=== PATIENT | male | born 1975 | race Caucasian/White ===

== ENCOUNTER 2016-09-21 11:40 | Emergency (ER) | payer OTHER ==
[2016-09-21] MEDS ORDERED: HYDROmorphone 1 mg/mL Inj ONE ×2 (11:43→11:45)
[2016-09-21] MEDS ORDERED: 0.9% Sodium Chloride 1,000 ML IV ONE (11:45)
[2016-09-21] MEDS ORDERED: HYDROmorphone 1 mg/mL Inj IVPUSH PRN (11:45)
[2016-09-21] MEDS ORDERED: Ondansetron 2 mg/mL 2 mL Inj IVPUSH PRN (11:45)
--- NOTE | 2016-09-21 11:48 | ED.REPORT ---
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 The pt fell off a 10-12 feet high roof onto dirt/construction debris and landed on his head and neck. As per the EMS, the pt lost consciousness, experienced vomiting, neck pain, pain in the left side of the abdomen, left shoulder and left leg. The pt reports most of his pain is in his left shoulder and neck. He denies any change in thinking, abdominal tenderness, pelvis tenderness and chest pain on palpation. Nursing Notes Stated Complaint: FALL Nursing Notes Reviewed: Yes General Time Seen by Provider: 11:38 Chief Complaint Multiple trauma Hx Obtained From: Patient, EMS Arrived By: Ambulance Onset Occurred: Just prior to arrival Symptom Duration: Since onset Progression Since Onset: Constant Caused by: Fall from (10-12 feet) Context: Occurred at: Workplace Location: : Neck: Shoulder left Quality: Painful Severity: Current: Severe Severity: Maximum: Severe Recent Healthcare: No recent doctor visit Similar Sx Previous: No Past Medical History Past Medical History Reports: Asthma Past Surgical History none reported Smoking History Unknown if Ever Smoker Ambulatory Status Independent Review of Systems GI: Reports: Vomiting Musculoskeletal: Reports: Extremity pain (Left leg), Joint pain (Left shoulder) , Neck pain, Denies: Back pain Neurologic: Reports: Change LOC Complete sys rev & neg: except as marked. Physical Exam Initial Vital Signs Temp: 36.2 Heart Rate: 88 BP: 160/121 Oxygen: 98% Resp: 20 Initial VS: Reviewed General/Constitutional: Awake, Alert Blood on left side of the face. Head / Eyes: Atraumatic, Normocephalic, PERRL, EOMI Neck: No swelling C-collar on. Respiratory / Chest: Breath sounds NL, Breath sounds = bilat, No respiratory distress Cardiovascular: Heart rate NL, Regular rhythm, Heart sounds NL, No gallop, No murmurs, No rubs Normal radial and ulnar pulse of left arm. Crepitus in left chest. Abdomen: Soft, Non-tender Back: Non-tender No vertebral tenderness but huge distracting injruy. Neurologic: Oriented X3, Speech NL, No motor deficits, No sensory deficits Upper Extremity / MS: Neurologic intact, Vascular intact Left Shoulder: Negative: Deformity present Severe left shoulder pain. Wrist / Hand: No deformity, Neurologic intact, Vascular intact Abrasion of distal ring finger, dorsal. Lower Extremity / Pelvis / MS: Full range of motion, No deformity, Neurologic intact, Vascular intact Ankle / Foot: Full range of motion, No deformity, Neurologic intact, Vascular intact Interpretation & Diagnostics PROCEDURE: CT CHEST, ABDOMEN AND PELVIS WITH CONTRAST ([id number]) IMPRESSION: 1. Highly comminuted left scapular fracture with extension into the glenoid and offset of the articular surface. There is also involvement of the acromion. 2. Nondisplaced left 3rd through 7th rib fractures. 3. No pulmonary contusion or laceration. No pneumothorax. 4. No solid organ contusion or lacerations. 5. No free fluid within the abdomen or pelvis. 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 -Bilateral pulmonary nodules. At least one of these has a groundglass appearance and a three-month followup CT of the chest is recommended. -Hepatic steatosis. Dictated by: Valentino Espinoza M.D. on 09/21/2016 at 11:12 Approved by: Valentino Espinoza M.D. on 09/21/2016 at 11:24 Lab Results Interpretation Result Diagram: 09/21/16 1210 Test 09/21/16 11:30 09/21/16 12:10 White Blood Count 8.1th/mm3 (3.8-10.1) Red Blood Count 3.94mil/mm3 (4.40-5.80) Mean Corpuscular Volume 91.4fL (81-100) Mean Corpuscular Hemoglobin 31.0pg (27.0-35.0) Mean Corpuscular Hemoglobin Concent 33.9% (32.0-37.0) Red Cell Distribution Width 13.6% (12.3-15.4) Platelet Count 260bil/L (150-400) Neutrophils (%) (Auto) 64.7% (40-74) Lymphocytes (%) (Auto) 25.2% (14-46) Monocytes (%) (Auto) 6.2% (4-12) Eosinophils (%) (Auto) 2.2% (0-5) Basophils (%) (Auto) 0.6% (0-3) Prothrombin Time 12.5sec (8.1-12.5) Prothromb Time International Ratio 1.16ratio Hemoglobin 14.1g/dL (13.8-17.2) Hematocrit 42.3% (41.0-50.0) ECG Interpretation ECG Interpretation: Normal Sinus rhythm. Rate 90. Time: 12:12 Interpreted by: ED physician CT Head Interpretation IMPRESSION: 1. No acute intracranial hemorrhage. 2. Prominent sinus disease appears chronic and probably related to dental disease. Dictated by: Valentino Espinoza M.D. on 09/21/2016 at 11:02 Approved by: Valentino Espinoza M.D. on 09/21/2016 at 11:06 Study: Head CT no contrast Interpretation / Wet Read by: Interpret - Radiologist CT C-Spine Interpretation IMPRESSION: 1. Vertical fractures of the C3, C4, and C5 vertebral bodies with involvement of the posterior elements is most pronounced at C3 and compatible with an unstable fracture. No significant retropulsion is evident. There does appear to be an epidural hematoma on the posterior margins of the these vertebral bodies. MRI would be helpful to evaluate the cervical cord. 2. Nondisplaced proximal right 1st rib fracture at the costovertebral junction. 3. Multifocal degenerative changes of the cervical spine are most pronounced at C5-6. Retrolisthesis at this level is felt to be degenerative. However, an acute process is difficult to exclude. There is central canal stenosis. 4. 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 Note: Findings were discussed with Dr. Barroso at 1240 hours (PST) on 09/21/16. Dictated by: Valentino Espinoza M.D. on 09/21/2016 at 11:24 Approved by: Valentino Espinoza M.D. on 09/21/2016 at 11:42 Study type: CT no contrast Interpretation / Wet Read by: Interpret - Radiologist Re-Eval/Medical Decision Re-Evaluation/Progress #1: Time of Eval: 12:05 Re-Evaluation/Progress Note: Rechecekd pt. Discussed the imaging results and informed the pt he will be transferred to [facility]. Re-Evaluation/Progress #2: Time of Eval: 12:41 Re-Evaluation/Progress Note: Rechecked pt. Discussed imaging results and diagnosis. Informed him that [facility] was contacted and he will be transferred. The pt understands and agrees with the plan. All questions answered. Consultation : Consulted With: Trauma surgeon Call Returned at: 12:38 [employer]: Will see patient, Agrees with plan, Accepts admit Note: Discussed the pt's condition with Dr. Owens at [facility]. She accepts admit. Counseled Regarding: Diagnosis, Lab results, Need for transfer Discharge & Departure Impression: Primary Impression: Left scapula fracture Encounter type: initial encounter Scapula location: unspecified part of scapula Fracture type: closed Qualified Code: S42.102A - Fracture of unspecified part of scapula, left shoulder, initial encounter for closed fracture Additional Impressions: Rib fractures Encounter type: initial encounter Rib fracture type: multiple ribs Fracture type: closed Laterality: unspecified laterality Qualified Code: S22.49XA - Multiple fractures of ribs, unspecified side, initial encounter for closed fracture Fx C3 vertebra-closed Encounter type: initial encounter Fx C4 vertebra-closed Encounter type: initial encounter Fx C5 vertebra-closed Encounter type: initial encounter Disposition: Transfer, Acute Care Facility Receiving Hospital: [facility] Transfer Accepted: Yes Transfer Accepted at: 12:38 Transfer Reason: Trauma Spoke with: Emergency physician Patient Status: Stable for transfer Patient Informed: Yes Discharge Condition All VS Reviewed: Yes Referrals: OTHER,PHYSICIAN (PCP) Crit Care Except Billable Proc Time Spent: 30-74 minutes Services Performed: Patient management by me, Time spent at bedside, Reviewing test results, Reviewing imaging, Discussing patient care Scribe Attestation Portions of this note were transcribed by Sherwin Sierra. I, , personally performed the history, physical exam and medical decision-making;I reviewed and confirmed the accuracy of the information in the transcribed note. Signed by Armen Estevez. 09/21/16 1250 Gelacio Barroso MD September 21, 2016 11:48 Sherwin Sierra September 21, 2016 11:53
[2016-09-21 12:00] LABS: BASOPHILS % (AUTO) 0.6 % (0-3); EOSINOPHILS % (AUTO) 2.2 % (0-5); MONOCYTES % (AUTO) 6.2 % (4-12); Mean Corpuscular Volume 91.4 fL (81-100); NEUTROPHILS % (AUTO) 64.7 % (40-74); Platelet Count 260 bil/L (150-400)
[2016-09-21 12:01] LABS: INR 1.16 ratio
--- NOTE | 2016-09-21 12:08 | DRSVH ---
PROCEDURE: CT BRAIN WITHOUT CONTRAST ([id number]) INDICATIONS: trauma TECHNIQUE: Noncontrast 4.5 mm thick angled axial sections acquired from the foramen magnum to the vertex, with c oronal reformats. COMPARISON: None. FINDINGS: Image quality: Diagnostic. Mild motion artifact is present. Brain: There is no acute intra-axial or extra-axial hemorrhage. No extra-axial fluid collection is i dentified. There is no midline shift or mass effect. The orbits are grossly unremarkable. No large areas of diffusely decreased attenuation are evident within the brain to suggest diffuse cer ebral edema. No focal parenchymal abnormality is identified. The ventricles and cortical sulci are age-appropriate. Bones: Calvarium and visualized facial bones are grossly intact. The right maxillary sinus is compl etely opacified. There is mucosal thickening of the adjacent right ethmoid air cells. It appears to be bony thickening of the beck of the right maxillary sinus, suggesting a chronic process. Corresp onding lucency surrounding the root of the 3rd tooth (upper right 1st molar). Additionally, there is prominent lucency surrounding the roots of the 13th and 14th teeth (upper left premolar and 1st mola r). Otherwise, the imaged paranasal sinuses and mastoid air cells are clear. IMPRESSION: 1. No acute intracranial hemorrhage. 2. Prominent sinus disease appears chronic and probably related to dental disease. Dictated by: Valentino Espinoza M.D. on 09/21/2016 at 11:02 Approved by: Valentino Espinoza M.D. on 09/21/2016 at 11:06
--- NOTE | 2016-09-21 12:25 | DRSVH ---
PROCEDURE: CT CHEST, ABDOMEN AND PELVIS WITH CONTRAST ([id number]) INDICATIONS: trauma TECHNIQUE: After the administration of intravenous contrast, 5 mm thick sections acquired from the lung apices t o the symphysis. 5 mm thick coronal and sagittal reformats were acquired. Additional 7 mm thick cor onal maximum intensity projection (MIP) reformats acquired through the lungs. Optional 10-minute del ayed imaging may be performed from the kidneys to the bladder. For radiation dose reduction, the fol lowing was used: automated exposure control, adjustment of mA and/or kV according to patient size. COMPARISON: None. FINDINGS: Image quality: Diagnostic. CHEST: Lungs: The lungs are well aerated without focal consolidation, effusion, or pneumothorax. No definit e pulmonary contusions are evident. There is no lung mass. However, there is a groundglass nodule e vident within the inferior aspect of the anterior right upper lobe that measures 11 x 6 mm (image 38, series 5). An additional separate nodule measuring approximately 4 mm in diameter is located slight ly inferior to this dominant nodule (image 42, series 5). Another nodule is seen along the superior margin of the left pulmonary fissure measuring approximately 5 mm in diameter (image 28, series 5). Mediastinum: No mediastinal hematomas. Heart size is normal. No pericardial effusion. Thoracic ao rta and pulmonary arteries demonstrate normal size and enhancement. No mediastinal or hilar adenopat hy. Esophagus is normal in caliber. No hiatal hernia. Chest wall and bones: Multiple nondisplaced fractures of the left-sided ribs are present (3rd, 4th, 5 th, 6th, and 7th ribs). Mild edema within the adjacent soft tissues is present. Fusion of the T2/T3 and T4/T5 vertebral bodies is present which appears to be congenital related to a segmentation anoma ly at the T4-5 level. Deformity of the right 1st rib is of doubtful significance and also probably c ongenital. There is a comminuted fracture present involving the left scapula that extends into the g lenoid, also involves the body of the scapula, and extends into the scapular spine. A fracture invol ving the acromion also is noted, which may be separate. The imaged portions of the right humerus are unremarkable. No subcutaneous emphysema. No axillary or supraclavicular adenopathy. Thyroid gland is not enlarged. ABDOMEN: Solid organs: Liver and spleen are normal in size and enhancement, without lacerations. The liver i s hypodense when compared to the spleen. Gallbladder is not enlarged. Biliary system is non-dilated . Pancreas enhances normally, without transection. No adrenal hematomas. Both kidneys enhance norm ally, without hydronephrosis or lacerations. Peritoneum and bowel: No free fluid or air. Unenhanced bowel loops demonstrate normal wall thicknes s and caliber. Nodes and vessels: No retroperitoneal or mesenteric adenopathy. Aorta and inferior vena cava are no rmal in size and enhancement. Bones: Age-appropriate degenerative changes of the lumbar spine are present. There are no acute comp ression fractures or other fractures of the lumbar spine. No suspicious osseous lesions are evident. PELVIS: Genitourinary: Bladder wall thickness is normal. The prostate is not enlarged. Miscellaneous: No inguinal hernias or adenopathy. No free fluid or loculated fluid collection is id entified. Bones: Pelvic ring and hip joints appear intact. No acute pelvic fractures are evident. No suspici ous osseous lesions are present. IMPRESSION: 1. Highly comminuted left scapular fracture with extension into the glenoid and offset of the articu lar surface. There is also involvement of the acromion. 2. Nondisplaced left 3rd through 7th rib fractures. 3. No pulmonary contusion or laceration. No pneumothorax. 4. No solid organ contusion or lacerations. 5. No free fluid within the abdomen or pelvis. 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 -Bilateral pulmonary nodules. At least one of these has a groundglass appearance and a three-month f ollowup CT of the chest is recommended. -Hepatic steatosis. Dictated by: Valentino Espinoza M.D. on 09/21/2016 at 11:12 Approved by: Valentino Espinoza M.D. on 09/21/2016 at 11:24
--- NOTE | 2016-09-21 12:44 | DRSVH ---
PROCEDURE: CT CERVICAL SPINE WITHOUT CONTRAST ([id number]) INDICATIONS: trauma TECHNIQUE: Noncontrast 3 mm thick sections acquired from the skull base to the T4 level. Sagittal and coronal r eformats were then constructed. For radiation dose reduction, the following was used: automated exp osure control, adjustment of mA and/or kV according to patient size. COMPARISON: None. FINDINGS: Image quality: Diagnostic. Motion artifact is present within the mid cervical region. Bones: The bone mineralization is within normal limits. No suspicious osseous lesions are evident. The odontoid is intact. Congenital fusion of the C4/5 and C5/6 vertebral bodies and posterior eleme nts are present. A vertically oriented fracture line extends through the mid aspect of the C3 vertebral body as well a s the fused C4/C5 vertebral bodies. Slight displacement/distraction of the vertical fracture line is evident at the C3 level by approximately 3 mm. However, no significant retropulsion is appreciated. Additional fractures are seen extending into the bilateral facet joints at the C3 level and involvi ng the bilateral lamina. The central canal at this level appears to be fairly well-maintained. No d efinite extension into the vertebral foramen is identified. Additional fracture involving the right C4 facet is present. An additional fracture is noted involving the costovertebral junction on the ri ght at the T1 rib. Additional congenital bony variants with fusion involving multiple vertebral leve ls involving the imaged upper thoracic region are noted. Moderate to severe multilevel degenerative changes of the cervical spine are most pronounced at the l evel of C5-C6 with prominent disc height loss, posterior disc osteophyte complex, and facet arthropat hy. Grade 1 retrolisthesis of C5 on C6 is present, which is probably chronic. There is central johnathon l stenosis at this location. Soft tissues: High attenuation fluid within the epidural space is noted extending from C1-C5, sugges ting epidural hematoma. The prevertebral soft tissues are thickened. No paravertebral hematomas. N o apical pneumothoraces. IMPRESSION: 1. Vertical fractures of the C3, C4, and C5 vertebral bodies with involvement of the posterior eleme nts is most pronounced at C3 and compatible with an unstable fracture. No significant retropulsion i s evident. There does appear to be an epidural hematoma on the posterior margins of the these verteb ral bodies. MRI would be helpful to evaluate the cervical cord. 2. Nondisplaced proximal right 1st rib fracture at the costovertebral junction. 3. Multifocal degenerative changes of the cervical spine are most pronounced at C5-6. Retrolisthesi s at this level is felt to be degenerative. However, an acute process is difficult to exclude. Ther e is central canal stenosis. 4. 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 Note: Findings were discussed with Dr. Barroso at 1240 hours (PST) on 09/21/16. Dictated by: Valentino Espinoza M.D. on 09/21/2016 at 11:24 Approved by: Valentino Espinoza M.D. on 09/21/2016 at 11:42
[2016-09-21 13:48] VITALS: BP 158/100; PULSE 89; RESP 14; O2SAT 100
== END 2016-09-21 13:11 | disposition short-term general hospital (02) ==
LOC: SED 11:40
DX: S42.192A Fracture of other part of scapula, left shoulder, initial encounter for closed fracture (principal); S22.42XA Multiple fractures of ribs, left side, initial encounter for closed fracture; S12.290A Other displaced fracture of third cervical vertebra, initial encounter for closed fracture; S12.390A Other displaced fracture of fourth cervical vertebra, initial encounter for closed fracture; S12.490A Other displaced fracture of fifth cervical vertebra, initial encounter for closed fracture; W13.2XXA Fall from, out of or through roof, initial encounter; Y93.89 Activity, other specified; Y99.0 Civilian activity done for income or pay; Y92.59 Other trade areas as the place of occurrence of the external cause; J45.909 Unspecified asthma, uncomplicated
CPT/HCPCS: 36415; 70450; 71260; 72125; 74177; 85014; 85018; 85025; 85610; 86850; 93005; 96374; 99291; G0390; Q9967

== ENCOUNTER 2016-09-28 23:47 | Observation (INO) | payer OTHER ==
[~2016-09-28] VITALS: Ht 177.8 cm; Wt 70.7 kg
[2016-09-28 23:49] VITALS: BP 110/69; PULSE 85; RESP 18; O2SAT 97
--- NOTE | 2016-09-29 00:26 | ED.REPORT ---
HPI-General Illness Date of Service September 29, 2016 ED Provider: Geoffrey Long MD The pt is a 41 y/o male w/ a history of trauma presenting to the ED complaining of delirium post surgery. He fell from a ladder from 40 ft, was sent to [facility] where he received C3-C5 surgery and was given Dilaudid. They chose not perform L scapula and rib surgery so he chose to go to [facility]. The delirium is present when the pt is taking the Percocet as well as when he is not taking it. The pt's family reports shallow breathing, thick bright green sputum, difficulty walking, L hand swelling and cold to touch , swelling and bruising at R hip, hot and cold sweats, nausea, slurred speech and vomiting.Denies fever. His brother left his contact information. Ajith Araiza (brother) [phone] Nursing Notes Stated Complaint: PAIN POST SURGERY Chief Complaint: Head, Face, Neck Trauma Nursing Notes Reviewed: Yes Allergies: Coded Allergies: No Known Allergies (Unverified , 09/28/16) General Time Seen by MD: 00:10 Chief Complaint Other (Increased delusion) Hx Obtained From: Patient, Spouse Arrived By: Walk-in Sudden in Onset?: Yes Onset Occurred: 1 week ago Symptom Duration: Since onset Recent Healthcare: Recent doctor visit, Recent hospitalization Similar Sx Previous: Yes Past Medical History Past Medical History Transferred to [facility] on September 21, 2016 after fall w/injury list: Fractures of the C3, C4, and C5 vertebral bodies with involvement of the posterior elements and a small epidural hematoma, multiple rib fractures (L ribs 3-8), left scapular fracture, clavicle fracture. Patient had a peripheral to carotid injury. Patient left AMA (he eloped without instructions) on 09/24/16, seen at [facility]. Consents obtained and reviewed from both [facility] and [place]. [facility] notes indicate the patient did have an aspiration event with a desaturation is 67% during his hospitalization. His hospitalization notes also indicate he did developed delirium at [facility], thought to be exacerbated by drug use with the tox screen positive for methamphetamines and can avoid. R wrist x-ray results: Minimally displaced fracture at the radial aspect of the second metacarpal extending to the second CMC joint. Non-displaced fracture at fourth proximal metacarpal shat at radial aspect. Possible fracture of trapezium at first CMC joint. Also increased sclerosis of distal capitate could be an impacted fracture. Reports: Asthma Past Surgical History Cervical surgery for C-spine fractures listed above (C3 corpectomy plus cage plus CO2 through for plating, C5 through 6 ACDF, C2 through T2 PSIF 09/22/16 Smoking History Current Every Day Smoker Social History Alcohol Use: 1-3 per day Drug Use: Denies drug use, Meth (tox screen positive [facility]), THC (tox screen positive at [facility]) Ambulatory Status Independent Review of Systems Shallow breathing, thick bright green sputum, difficulty walking, L hand swelling and cold to touch, swelling and bruising at R hip, hot and cold sweats Full Review of Systems Constitutional: Denies: Fever GI: Reports: Nausea, Vomiting Musculoskeletal: Reports: Extremity pain (L side ), Neck pain Neurologic: Reports: Confusion, Slurred speech Complete sys rev & neg: except as marked. Physical Exam Vital Signs Vital Signs Date Time Temp Pulse Resp B/P Pulse Ox O2 Delivery O2 Flow Rate FiO2 09/28/16 23:49 36.6 85 18 110/69 97 Initial VS: Reviewed, Vital signs normal General/Constitutional: Awake, Alert Head / Eyes: Normocephalic, PERRL Neck: Supple, No masses incision is clean, dry, and intact Respiratory / Chest: Breath sounds = bilat, No rales, No rhonchi, No wheezing Lungs are coarse Not currently SOB but was recently Cardiovascular: Heart rate NL, Regular rhythm, Heart sounds NL Heart Rate / Rhythm: Negative: Tachycardia Wrist / Hand: Neurologic intact, Vascular intact Swelling of L hand Skin: No rash, Warm, Dry Color / Condition: Negative: Diaphoresis present Bruising on L side of chest and abd Neurologic: No sensory deficits, CN II - XII intact Mental Status: Positive: Confused Speech: Positive: Slurred Delirious Can name month and year but not president Not tremulous No focal weakness Interpretation & Diagnostics Lab Results Interpretation Result Diagram: 09/29/16 0135 09/29/16 013 Test 09/29/16 00:46 09/29/16 01:35 Urine Color Yellow (YELLOW) Urine Appearance Cloudy (CLEAR,HAZY) Urine pH 7.0 (5.0-8.0) Urine Specific [place] 1.010 (1.003-1.035) Urine Protein Negativemg/dL (NEG,TRACE) Urine Glucose (UA) Negativemg/dL (NEGATIVE) Urine Ketones Negativemg/dL (NEGATIVE) Urine Occult Blood Negative (NEGATIVE) Urine Nitrite Negative (NEGATIVE) Urine Bilirubin Negative (NEGATIVE) Urine Urobilinogen Normalmg/dL (NORMAL) Urine Leukocyte Esterase Negative (NEGATIVE) Urine RBC 0-2/hpf (0-2) Urine WBC 0-5/hpf (0-5) Urine Epithelial Cells Occasional/hpf (NONE-MOD) Urine Crystals Amorphous urates (NONE Urine Bacteria None/hpf (NONE-FEW) Urine Hyaline Casts None/lpf (NONE) Urine Granular Casts None seen (NONE SEEN) Urine Waxy Casts None seen (NONE SEEN) Urine Red Blood Cell Casts None seen (NONE SEEN) Urine White Blood Cell Casts None seen (NONE SEEN) Urine Mucus None seen (None Seen) Urine Trichomonas None seen (NONE SEEN) Urine Yeast None (NONE SEEN) Urinalysis Comment None Urine Culture Reflexed Not indicated White Blood Count 8.1th/mm3 (3.8-10.1) Red Blood Count 3.85mil/mm3 (4.40-5.80) Hemoglobin 11.4g/dL (13.8-17.2) Hematocrit 35.6% (41.0-50.0) Mean Corpuscular Volume 92.5fL (81-100) Mean Corpuscular Hemoglobin 29.6pg (27.0-35.0) Mean Corpuscular Hemoglobin Concent 32.0% (32.0-37.0) Red Cell Distribution Width 13.9% (12.3-15.4) Platelet Count 489bil/L (150-400) Neutrophils (%) (Auto) 63.4% (40-74) Lymphocytes (%) (Auto) 20.7% (14-46) Monocytes (%) (Auto) 10.1% (4-12) Eosinophils (%) (Auto) 4.3% (0-5) Basophils (%) (Auto) 0.9% (0-3) Sodium Level 138mEq/L (134-144) Potassium Level 4.6mEq/L (3.5-5.2) Chloride Level 99mEq/L (97-108) Carbon Dioxide Level 27mmol/L (18-29) Blood Urea Nitrogen 15mg/dL (6-24) Creatinine 0.60mg/dL (0.76-1.27) Estimat Glomerular Filtration Rate 156mL/min (>59) Glucose Level 120mg/dL (60-99) Lactic Acid Level 0.9mmol/L (0.4-2.0) Calcium Level 9.1mg/dL (8.5-10.1) Total Bilirubin 0.3mg/dL (0.0-1.2) Aspartate Amino Transf (AST/SGOT) 41U/L (0-50) Alanine Aminotransferase (ALT/SGPT) 40U/L (0-44) Alkaline Phosphatase 106U/L (25-150) Total Protein 7.3g/dL (6.4-8.4) Albumin 3.3g/dL (3.4-5.0) Acetaminophen Level < 15.0ug/mL Rx (10-25) Lab Results Interpretation: CBC normal CMP normal Acetaminophen negative Tox screen positive THC and opiates (please note tox screen at [facility] was positive for methamphetamine) Blood cultures pending X-Ray Chest Interpretation Chest Xray Interpretation: 0210 Left scapula fracture displaced Multiple L sided rib fractures No pneumothorax No Sub-Q area Interpretation / Wet Read by: Wet read ED physician X-Ray Interpretation Xray Interpretation: 0210 No fractures X-Ray Ordered: Hand left Interpretation / Wet Read by: Wet read ED physician Re-Eval/Medical Decision Med Decision/Clinical Course 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. Records from [facility] were obtained, the patient underwent surgical repair of his cervical C-spine, and according toadmission she did have problems with delirium that was considered to be multiply factorial: The patient had had significant trauma, he is requiring subcutaneous dose of pain medications, his tox screen demonstrated positive methamphetamine substance abuse issues, etc. the patient was being managed medically. The patient did have a reported aspiration event at [facility], with desaturation, but did not spike a fever over findings of infection. He then eloped on the , and was seen at [facility] was attempting to set him up with an outpatient also follow-up, although the family indicates it does not hurt a call back from their calls to schedule an outpatient appointment. Family brings him in today indicating that his delirium-he has a waxing waning mental status with agitation and confusion has been worsening. There is some component they believe secondary to the pain medicines, but the indicated present even if he is not taking medicines and is worsening. If also notices had a cough with some green sputum, and reports he was really short of breath and may have had some strep mucous plug event yesterday-all is not had no respiratory symptoms today. He also wanted his surgical site of his neck reevaluated. Here in the department the patient does appear delirious. He can name the month and year, but not which hospital he is at, where he is at, he cannot name the president, and he seems mildly confused with some waxing and waning of the level. He did require lorazepam and Haldol to facilitate his evaluation. He is currently in a hard collar, but the family notes he has not been perfectly compliant. His surgical incision was inspected, the strips are coming off and were removed-the surgical site is clean dry and intact. Tegaderm is being placed. The patient has some bruising of the shoulder, chest wall, left flank-but has had imaging of these. He is not tachypneic or dyspneic. He is not febrile. There is no focality to his neurologic exam. A chest x-ray is negative for aspiration or abnormality beyond the left rib fractures and left scapular fracture. Patient has removed his sling and shoulder immobilizer both from [facility] and from [facility]. Records were obtained from both [place] and [facility]. Laboratory work was obtained and was normal. The patient did well with the Ativan and Haldol. Records do indicate he would drink beer daily, but he does not have a tachycardia, piloerection, agitation that would clinically suggest jennifer alcohol withdrawal. I am not finding either clinical findings, or laboratory findings of an infectious etiology. Urinalysis is negative, blood work is normal, blood cultures however have been drawn. A repeat head CT is being obtained. At this point given the level of delirium, and the family appropriate discomfort trying to management home readmission is indicated. He does not have an overt acute surgical emergency or orthopedic emergency require consultation at this late hour the morning, the plan will be to admit to the medicine service and obtained trauma surgery and orthopedic consultations in the morning to assist medicine service given his traumatic injuries. The patient is not febrile, does not have a white count, and is not of clinical features or jennifer meningitis to require LP at this time. Source of Hx: Old records Consultation : Referral / Consult Name: Sy Alexander MD Consulted With: Hospitalist Requested Call at: 02:26 Cloth Bin Packer: Will see patient, Agrees with eval, Agrees with plan, Accepts admit Differential Diagnosis: Negative: Diabetes mellitus, Laceration, Neutropenia, Pneumonia, Syncope, Wound dehiscence Counseled Regarding: Diagnosis, Lab results, Need for admission Discharge & Departure Primary Impression: Delirium Disposition: ADMITTED TO HOSPITAL Discharge Condition All VS Reviewed: Yes Condition: Stable Referrals: NOPCP (PCP) Care Transferred to: Dr. Biggs Care Transferred at: 03:00 Scribchavo Attestation Portions of this note were transcribed by Blade Ratliff. I, Dr. Long personally performed the history, physical exam and medical decision-making; I reviewed and confirmed the accuracy of the information in the transcribed note. Signed by : Armen Jones, 09/28/16 and 0106. Geoffrey Long MD September 29, 2016 00:26 Blade Ratliff September 29, 2016 00:53
[2016-09-29 01:08] LABS: APPEARANCE,URINE CLOUDY (CLEAR,HAZY); COLOR,URINE YELLOW (YELLOW)
[2016-09-29 01:09] LABS: OCCULT BLOOD,URINE NEGATIVE (NEGATIVE); UROBILINOGEN,URINE NORMAL (NORMAL)
[2016-09-29 02:02] LABS: BASOPHILS % (AUTO) 0.9 % (0-3); EOSINOPHILS % (AUTO) 4.3 % (0-5); MONOCYTES % (AUTO) 10.1 % (4-12); Mean Corpuscular Hemoglobin 29.6 pg (27.0-35.0); Mean Corpuscular Volume 92.5 fL (81-100); NEUTROPHILS % (AUTO) 63.4 % (40-74)
[2016-09-29] MEDS ORDERED: Haloperidol 5 mg/mL Inj IVPUSH ONE (02:10)
[2016-09-29] MEDS ORDERED: 0.9% Sodium Chloride 50 ML ONE (02:11)
[2016-09-29 02:16] LABS: Platelet Count 489 bil/L (150-400)
[2016-09-29] MEDS ORDERED: Polyethylene Glycol (PEG) 17 Gm Powder PO PRN (02:50)
[2016-09-29] MEDS ORDERED: Ondansetron 2 mg/mL 2 mL Inj IVPUSH PRN (02:50)
[2016-09-29] MEDS ORDERED: Alum-Mag Hydrox-Simeth 30 mL Suspension PO PRN (02:50)
[2016-09-29 03:58] VITALS: BP 122/78; PULSE 98; RESP 24; O2SAT 97
--- NOTE | 2016-09-29 03:59 | PCM.HPMED ---
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 Patient is accompanied by his fiance "Mechelle", who gives most of the history. Per records from [facility], the patient underwent surgical repair of his cervical C-spine, and having some delirium that was considered to be multifactorial: The patient had had significant trauma requiring subcutaneous dose of pain medications. His tox screen demonstrated positive methamphetamine substance abuse issues, etc. the patient was being managed medically. The patient did have a reported aspiration event at [facility], with desaturation, but did not spike a fever over findings of infection. He left [facility] on the , and was seen at [facility] , where they were attempting to set him up with an outpatient ortho follow-up, although the family indicates it does not hurt a call back from their calls to schedule an outpatient appointment. Family brings him in today indicating that his delirium has a waxing waning mental status with agitation and confusion and has been worsening. There is some component they believe is secondary to the pain medicines, but they indicated symptoms worsening even if he is not taking the medicines. He also reports of having a cough with some green sputum, and reports he was really short of breath. Patient states he has not had any respiratory symptoms today. He also wanted his surgical site of his neck reevaluated. The pt's family reports shallow breathing, small amount of thick bright green sputum, difficulty walking, L hand swelling and cold to touch, swelling and bruising at R hip, hot and cold sweats, nausea, slurred speech and vomiting. Denies fever. His brother left his contact information: Ajith Araiza (brother) [phone] In the ED the patient does not appear delirious, but mildly confused. Although this may have been due to the lorazepam and hospital. CBC, CMP was normal, UA negative, acetaminophen level negative, tox screen positive for THC and opiates. Chest x-ray negative for aspiration or abnormality beyond the left rib fractures and left scapular fracture already known. Patient showed no sign of alcohol withdrawal. Head CT ordered. Patient was deemed to not have any overt acute surgical or orthopedic emergency consult required. Patient admitted for consultation in am to recommend further management with his traumatic injuries. Review of Systems: Constitutional: Denies: Fever GI: Nausea, Vomiting, denies abdominal pain Musculoskeletal: Reports: L wrist pain, Neck pain Neurologic: Reports: Confusion, Slurred speech Complete sys rev & neg: except as marked. Allergies Coded Allergies: No Known Allergies (Unverified , 09/28/16) Home Medications Percocet #15 prescribed by [facility]. PMH Transferred to [facility] on September 21, 2016 after fall w/injury. Fractures of the C3, C4, and C5 vertebral bodies with involvement of the posterior elements and a small epidural hematoma, multiple rib fractures (L ribs 3-8), left scapular fracture, clavicle fracture. Patient had a peripheral to carotid injury. Patient left AMA (he eloped without instructions) on 09/24/16, seen at [facility]. Records obtained and reviewed from both [facility] and [place]. [facility] notes indicate the patient did have an aspiration event with a desaturation is 67% during his hospitalization. His hospitalization notes also indicate he did developed delirium at [facility], thought to be exacerbated by drug use with the tox screen positive for methamphetamines and cannabinoids R wrist x-ray results: Minimally displaced fracture at the radial aspect of the second metacarpal extending to the second CMC joint. Non-displaced fracture at fourth proximal metacarpal shat at radial aspect. Possible fracture of trapezium at first CMC joint. Also increased sclerosis of distal capitate could be an impacted fracture. Asthma Surgical History Cervical surgery for C-spine fractures listed above (C3 corpectomy plus cage plus C2 through for plating, C5 through 6 ACDF, C2 through T2 PSIF 09/22/16 Family History Patient to confused to answer questions at this time, miranda Min does not know of any family history for this patient. 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 HEENT: Normocephalic, no sclera icterus, erythematous conjunctiva, sluggish pupils, moist mucous membranes Neck: Supple, healing surgical scar CDI on anterior neck with Steri-Strips, gauze covering surgical scar from the surgery to C3 to T2 posteriorly, with stitches still intact, cervical brace intact Respiratory: Diffuse coarse breath sounds throughout Cardiovascular: Regular rate & rhythm, Heart sounds normal Skin: Warm, Dry, and intact, large area of healing ecchymosis on left flank to left hip, crusted lesion of left ear lobe Neurologic: Alert, moderately confused with slurred speech, sensation and strength intact upper/lower extremities Psychiatric: Mood/affect normal, Behavior normal, Normal thought content Extremity: Swollen left hand, not tender to palpation, no lower extremity edema Lab and Diagnostics Result Diagram: 09/29/16 0135 09/29/16 0135 X-Rays, CTs and MRIs Chest Xray Interpretation: 0210 Left scapula fracture displaced Multiple L sided rib fractures No pneumothorax No Sub-Q area Interpretation / Wet Read by: Wet read ED physician Xray Interpretation: 0210 No fractures X-Ray Ordered: Hand left Interpretation / Wet Read by: Wet read ED physician Assessment & Plan 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 Patient underwent surgical repair of his cervical C-spine, and having some delirium that was considered to be multifactorial, including his pain medications. Patient was admitted for further observation and reassessment of his traumatic injuries. Delirium and confusion, present on admission. Acute. - Patient experiencing delirium per [facility] records - Chest x-ray negative for any cardiopulmonary acute disease process febrile with normal CBC and CMP, UA negative - Blood cultures pending Cerebellar lesion, present on admission. Acute. - Head CT showed "Approximately 3.1x2.6 cm hypodensity noted in the left cerebellum." - Ddx include infarct, nonhemorrhagic contusion due to recent trauma, or inflammatory lesion. Neoplasm less likely due to previous study with normal results on September 21. - maybe contributing to his current ataxia - MR not obtainable due to hardware in recent cervical surgery, consider repeat head CT to follow-up on lesion. Traumatic injuries; if the cervical spine, left rib, left scapula, right wrist fractures, present on admission. Stable. - no overt acute surgical or orthopedic emergency services required - Patient not complaining of any pain - appreciate orthopedic consult and expertise in am - wound care ordered Hx of asthma - Patient in no respiratory distress, no wheezes Acetaminophen-fever/headache/mild/moderate pain Antiemetics, as needed Bowel regimen, as needed. Patient status: Patient was admitted under observation status with expected length of stay lesser than two midnights. Pain Evaluation: Adequate Pain Control GI Prophylaxis: Not indicated VTE Prophylaxis: Sub-Q Heparin (Unfractionated) Resuscitation Status: CPR: Attempt Resuscitation Attending Statement The patient was seen and examined together with Dr. Rios on 09/29 and I agree with the history, exam and plan as outlined in the note above. Gio Rios DO September 29, 2016 02:55 Sy Alexander MD September 30, 2016 06:36
[2016-09-29 04:30] VITALS: BP 130/78; PULSE 72; RESP 18; O2SAT 100
[2016-09-29 05:00] VITALS: BP 99/61; PULSE 62; RESP 16; O2SAT 96
--- NOTE | 2016-09-29 05:08 | NUR ---
admission patient admitted to [facility] room 1020 confused. impulsive. not easily redirected. yells. swears. demands to leave if not given something to eat. girlfriend at bedside given ice cream and pudding. aspiration precautions in place. Addendum: 09/29/16 at 527 by LUIS HOLLOWAY RN noncompliant with skin assessment. refuses to take off pants. Addendum: 09/29/16 at 528 by LUIS HOLLOWAY RN patient yelling. swearing. explained that this is a hospital, and yelling is not appropriate. given warm blankets.
[2016-09-29] MEDS ORDERED: OXYC1TAB24 PO (05:32)
[2016-09-29 06:18] LABS: BASOPHILS % (AUTO) 0.7 % (0-3); EOSINOPHILS % (AUTO) 3.8 % (0-5); MONOCYTES % (AUTO) 9.9 % (4-12); Mean Corpuscular Hemoglobin 30.5 pg (27.0-35.0); Mean Corpuscular Volume 92.9 fL (81-100); NEUTROPHILS % (AUTO) 68.3 % (40-74); Platelet Count 467 bil/L (150-400)
--- NOTE | 2016-09-29 06:34 | NUR ---
noncompliance - denny alarm patient noncompliant with call light. ran out in the [place], into the doorway of another patient's room. escorted back to bed. denny alarm on. girlfriend reminded of the importance of the patient staying in the room.
[2016-09-29] MEDS ORDERED: oxyCODONE-Acetamin 5-325 mg Tablet PO PRN (07:25)
--- NOTE | 2016-09-29 09:00 | DRSVH ---
PROCEDURE: CT BRAIN WITHOUT CONTRAST ([id number]) INDICATIONS: Altered LOC TECHNIQUE: Noncontrast 4.5 mm thick angled axial sections acquired from the foramen magnum to the vertex, with c oronal reformats. COMPARISON: [facility], CT, CT BRAIN WO CON, 09/21/2016, 11:54. FINDINGS: Image quality: Excellent. CSF spaces: Basal cisterns are patent. No extra-axial fluid collections. Ventricles are normal in size and shape. Brain: No midline shift. No intracranial hemorrhage. Hollis-white matter interface is normal. Inter ema since the prior exam, there has been development of a 24 mm AP by 20 mm transverse hypodensity wi thin the left cerebellum. There is no appreciable edema. Skull and face: Calvarium and visualized facial bones are intact, without suspicious lesions. Sinuses: There is near-complete opacification of the right maxillary sinus. IMPRESSION: 1. Interval development since 09/21/16 of left cerebellar hypodensity as above. Appearance is nonspecific on CT examination. However, differential diagnosis includes infarction incl uding venous infarction, nonhemorrhagic contusion in the setting of recent trauma or development of i nfection or inflammatory lesion. Further evaluation with MRI brain with and without contrast is recom mended for additional evaluation. Dictated by: Dory Skinner M.D. on 09/29/2016 at 8:55 Approved by: Dory Skinner M.D. on 09/29/2016 at 8:59
--- NOTE | 2016-09-29 09:28 | DRSVH ---
PROCEDURE: X-RAY LEFT HAND, MINIMUM THREE VIEWS ([id number]) INDICATIONS: L hand swelling TECHNIQUE: 3 views of the hand(s) acquired. COMPARISON: None. FINDINGS: Bones: No fractures or dislocations. Carpal bones are normally aligned. No suspicious bony lesions . Soft tissues: No suspicious soft tissue calcifications. IMPRESSION: No visualized acute fracture or dislocation. However, if clinical concern and/or pain pe rsist, short interval imaging followup in 7-10 days is recommended, as occult injury cannot be defini tively excluded. Dictated by: Dory Skinner M.D. on 09/29/2016 at 9:26 Approved by: Dory Skinner M.D. on 09/29/2016 at 9:26
--- NOTE | 2016-09-29 10:13 | DRSVH ---
PROCEDURE: X-RAY CHEST ONE VIEW, PORTABLE ([id number]) INDICATIONS: sob, F/U RIB FX, RO PNEUMONIA TECHNIQUE: One view of the chest was acquired. COMPARISON: [facility], CHEST 2 VIEW, 09/26/2016, 21:00. FINDINGS: Surgical changes and devices: Partially visualized cervical fixation is present. Lungs and pleura: No pleural effusions or pneumothorax. Lungs are clear. Mediastinum: Mediastinal contours appear normal. Heart size is normal. Bones and chest wall: No suspicious bony lesions. Overlying soft tissues appear unremarkable. Unch anged appearance of previously identified left rib fractures. Previously identified comminuted left s capular fracture is not as well-visualized. IMPRESSION: Rib and scapular fractures as previously noted. No acute pulmonary process. Dictated by: Dory Skinner M.D. on 09/29/2016 at 10:10 Approved by: Dory Skinner M.D. on 09/29/2016 at 10:11
--- NOTE | 2016-09-29 11:07 | PCM.DIMED ---
Discharge Instructions Date of Service September 29, 2016 Dates of Hospitalization September 29, 2016 at 02:56 Discharge Diagnosis Discharge Diagnosis Delirium, newly developed hypodense lesion in Cerebellum in the setting of recent multiple trauma Diet No restrictions Activity No restrictions Patient Instructions You were hospitalized with delirium and confusion, brought by your family member to the hospital. Please note that given recent surgery, unfinished management from Neurosurgery, persistent delirium, you are transferred to [facility] for further care Follow-up plan Please follow-up doctors at [facility] Mynor Alexander MD September 29, 2016 11:04
--- NOTE | 2016-09-29 11:16 | PCM.DC.MED ---
Discharge Summary Date of Service September 29, 2016 Dates of Hospitalization Date of Hospital Admission September 29, 2016 at 02:56 Date of Discharge: September 29, 2016 Providers: Admitting Physician: Sy Alexander MD Primary Care Physician: Noppablito Attending Physician: Sy Alexander MD Diagnosis at Time of Discharge Diagnosis at Time of Discharge Delirium, newly developed hypodense lesion in Cerebellum in the setting of recent multiple trauma Procedures XRay, CTs & MRIs Chest Xray Interpretation: 0210 Left scapula fracture displaced Multiple L sided rib fractures No pneumothorax No Sub-Q area Interpretation / Wet Read by: Wet read ED physician Xray Interpretation: 0210 No fractures X-Ray Ordered: Hand left Interpretation / Wet Read by: Wet read ED physician Brief History HPI obtained by Dr. 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 Patient is accompanied by his fiance "Mechelle", who gives most of the history. Per records from [facility], the patient underwent surgical repair of his cervical C-spine, and having some delirium that was considered to be multifactorial: The patient had had significant trauma requiring subcutaneous dose of pain medications. His tox screen demonstrated positive methamphetamine substance abuse issues, etc. the patient was being managed medically. The patient did have [place] [facility], but did not spike a fever over findings of infection. He left [place] on the , and was seen at [facility] , where they were attempting to set him up with an outpatient ortho follow-up, although the family indicates it does not hurt a call back from their calls to schedule an outpatient appointment. Family brings him in today indicating that his delirium has a waxing waning mental status with agitation and confusion and has been worsening. There is some component they believe is secondary to the pain medicines, but they indicated symptoms worsening even if he is not taking the medicines. He also reports of having a cough with some green sputum, and reports he was really short of breath. Patient states he has not had any respiratory symptoms today. He also wanted his surgical site of his neck reevaluated. The pt's family reports shallow breathing, small amount of thick bright green sputum, difficulty walking, L hand swelling and cold to touch, swelling and bruising at R hip, hot and cold sweats, nausea, slurred speech and vomiting. Denies fever. His brother left his contact information: Ajith Araiza (brother) [phone] In the ED the patient does not appear delirious, but mildly confused. Although this may have been due to the lorazepam and hospital. CBC, CMP was normal, UA negative, acetaminophen level negative, tox screen positive for THC and opiates. Chest x-ray negative for aspiration or abnormality beyond the left rib fractures and left scapular fracture already known. Patient showed no sign of alcohol withdrawal. Head CT ordered. Patient was deemed to not have any overt acute surgical or orthopedic emergency consult required. Patient admitted for consultation in am to recommend further management with his traumatic injuries. 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 Patient underwent surgical repair of his cervical C-spine, and having some delirium that was considered to be multifactorial, including his pain medications. Patient was admitted for further observation and reassessment of his traumatic injuries. acute dx 1 Acute encephalopathy, in the setting of recent C-spine fracture In ED, CTH with noncontrast obtained, which showed "Approximately 3.1x2.6 cm hypodensity noted in the left cerebellum, likely infarction vs contusion, which likely was not present in previous [place] [facility] Patient was admitted for observation. Labs were unremarkable. Vitals remained stable. patient only stayed less than a day in the hospital. Patient underwent MRI of brain and MRA of bravo/neck given CT result. Results are still pending at this time of transfer. Given this ongoing encephalopathy, no neurosurgeon available, recent elopement at [facility] earlier, it was thought to be reasonable to transfer patient to [facility] for further evaluation and management. Patient was accepted by Dr.Bryce Kidd. 2.Fall w/injury on 09/21 with resultant fractures of the C3, C4, and C5 vertebral bodies with involvement of the posterior elements and a small epidural hematoma, multiple rib fractures (L ribs 3-8), left scapular fracture, clavicle fracture. s/p Cervical surgery C3 corpectomy plus cage plus C2 through for plating, C5 through 6 ACDF, C2 through T2 PSIF 09/22/16 3.R wrist x-ray minimally displaced fracture at the radial aspect of the second metacarpal extending to the second CMC joint from fall chronic dx 2 hx of asthma, remained stable. Exam Vital Signs (Last) Date Time Temp Pulse Resp B/P Pulse Ox O2 Delivery O2 Flow Rate FiO2 09/29/16 05:00 Exam easily agitated, emotional, ambulate steadily neuro:AAOx2, EOMI, PERRLA, unable to finish full CN exam as not following some commands, mildly weak handgrip on Lt hand, neck brace in place no JVD, MMM, no LAD RRR, nl s1, s2 no mrg CTAB, no w,c S,ND,NT,normoactive BS+ warm, no edema, pulses 2/2 Test 09/29/16 00:46 09/29/16 01:35 09/29/16 05:50 Urine Color Yellow (YELLOW) Urine Appearance Cloudy (CLEAR,HAZY) Urine pH 7.0 (5.0-8.0) Urine Specific [place] 1.010 (1.003-1.035) Urine Protein Negativemg/dL (NEG,TRACE) Urine Glucose (UA) Negativemg/dL (NEGATIVE) Urine Ketones Negativemg/dL (NEGATIVE) Urine Occult Blood Negative (NEGATIVE) Urine Nitrite Negative (NEGATIVE) Urine Bilirubin Negative (NEGATIVE) Urine Urobilinogen Normalmg/dL (NORMAL) Urine Leukocyte Esterase Negative (NEGATIVE) Urine RBC 0-2/hpf (0-2) Urine WBC 0-5/hpf (0-5) Urine Epithelial Cells Occasional/hpf (NONE-MOD) Urine Crystals Amorphous urates (NONE Urine Bacteria None/hpf (NONE-FEW) Urine Hyaline Casts None/lpf (NONE) Urine Granular Casts None seen (NONE SEEN) Urine Waxy Casts None seen (NONE SEEN) Urine Red Blood Cell Casts None seen (NONE SEEN) Urine White Blood Cell Casts None seen (NONE SEEN) Urine Mucus None seen (None Seen) Urine Trichomonas None seen (NONE SEEN) Urine Yeast None (NONE SEEN) Urinalysis Comment None Urine Culture Reflexed Not indicated Sodium Level 138mEq/L (134-144) Potassium Level 4.6mEq/L (3.5-5.2) Chloride Level 99mEq/L (97-108) Carbon Dioxide Level 27mmol/L (18-29) Blood Urea Nitrogen 15mg/dL (6-24) Creatinine 0.60mg/dL (0.76-1.27) Estimat Glomerular Filtration Rate 156mL/min (>59) Glucose Level 120mg/dL (60-99) Lactic Acid Level 0.9mmol/L (0.4-2.0) Calcium Level 9.1mg/dL (8.5-10.1) Total Bilirubin 0.3mg/dL (0.0-1.2) Aspartate Amino Transf (AST/SGOT) 41U/L (0-50) Alanine Aminotransferase (ALT/SGPT) 40U/L (0-44) Alkaline Phosphatase 106U/L (25-150) Total Protein 7.3g/dL (6.4-8.4) Albumin 3.3g/dL (3.4-5.0) Acetaminophen Level < 15.0ug/mL Rx (10-25) White Blood Count 8.7th/mm3 (3.8-10.1) Red Blood Count 3.67mil/mm3 (4.40-5.80) Hemoglobin 11.2g/dL (13.8-17.2) Hematocrit 34.1% (41.0-50.0) Mean Corpuscular Volume 92.9fL (81-100) Mean Corpuscular Hemoglobin 30.5pg (27.0-35.0) Mean Corpuscular Hemoglobin Concent 32.8% (32.0-37.0) Red Cell Distribution Width 14.0% (12.3-15.4) Platelet Count 467bil/L (150-400) Neutrophils (%) (Auto) 68.3% (40-74) Lymphocytes (%) (Auto) 16.7% (14-46) Monocytes (%) (Auto) 9.9% (4-12) Eosinophils (%) (Auto) 3.8% (0-5) Basophils (%) (Auto) 0.7% (0-3) Discharge Medications As needed oxyCODONE-Acetaminophen 5-325 mg (oxyCODONE-Acetaminophen 5-325 mg) 1 Each Tablet 1 TAB PO Q4H PRN PRN For Pain (Reported) Followup Plan Disposition: Transferred to other acute care facility Follow-up plan Please follow-up doctors at [facility] Discharge Diet: No restrictions Discharge Activity: No restrictions Patient Instructions You were hospitalized with delirium and confusion, brought by your family member to the hospital. Please note that given recent surgery, unfinished management from Neurosurgery, persistent delirium, you are transferred to [facility] for further care Time spent 65 minutes Mynor Alexander MD September 29, 2016 11:16 Discharge Medications As needed oxyCODONE-Acetaminophen 5-325 mg (oxyCODONE-Acetaminophen 5-325 mg) 1 Each Tablet 1 TAB PO Q4H PRN PRN For Pain (Reported) Followup Plan Disposition: Transferred to other acute care facility Follow-up plan Please follow-up doctors at [facility] Discharge Diet: No restrictions Discharge Activity: No restrictions Patient Instructions You were hospitalized with delirium and confusion, brought by your family member to the hospital. Please note that given recent surgery, unfinished management from Neurosurgery, persistent delirium, you are transferred to [facility] for further care Time spent 65 minutes Mynor Alexander MD September 29, 2016 11:16
--- NOTE | 2016-09-29 13:31 | DRSVH ---
PROCEDURE: MRI STROKE PROTOCOL ([id number]) Pre- and post-contrast brain MRI, non-contrast brain MR angiogram, pre- and postcontrast neck MR lauren ogram INDICATIONS: Altered mental status and abnormal CT. History of recent trauma. TECHNIQUE: Brain: Noncontrast axial T1 spin echo, axial T2 fast spin echo, sagittal and axial FLAIR, coronal T2 fast spin echo, axial gradient echo, axial diffusion and ADC through the brain. After the administr ation of contrast, axial 3D VIBE of the cranial vasculature and brain. Brain MRA: Non-contrast 3-D time of flight MR angiogram, with multiple axsddlw-wilktxkvn-doorjbfmau (MIP) reformats performed. Neck MRA: Axial and sagittal TruFISP through the neck. Coronal dynamic MR angiogram during administ ration of contrast in the arterial and venous phases, with 3-dimenstional eywvvqp-ypizketwo-ubojfsknq n (MIP) reformats constructed from subtraction images. COMPARISON: [facility], CT, CT CERVICAL SPINE WO CON, 09/21/2016, 11:54. [facility], CT, CT BRAIN WO CON, 09/21/2016, 11:54. [facility], CT, CT BRAIN WO CON, 09/30/19 17, 3:07. FINDINGS: Image quality: Motion artifacts. BRAIN: CSF spaces: Ventricles are normal in size and shape. Basal cisterns are patent. No extra-axial flu id collections. Brain: There is a 2.9 x 2.8 cm area of hyperintensity on diffusion weighted in the left cerebellar h emisphere with subtle decreased signal on ADC map, compatible with acute or subacute infarct. On grad ient echo images, there are foci of susceptibility artifact consistent with present of hemosiderin. N o mass effects. There is a tiny focus of hyperintensity on diffusion weighted images in the left post erior frontal white matter, demonstrating no definitive correlate on ADC map, most likely caused by T 2 shine-through. Brainstem appears normal. Normal intravascular flow voids are present. No abnorma l intracranial enhancement. Skull and face: Calvarial marrow signal is normal. Orbits appear normal. Sinuses: The right maxillary sinus is opacified. There is mucosal thickening in ethmoid sinuses bilat erally. There mastoids are clear. BRAIN MR ANGIOGRAM: Anterior circulation: Intracranial internal carotid arteries are normal in size and enhancement. Th e flow within the paired anterior cerebral arteries is normal and symmetric. The flow within the mid dle cerebral arteries is normal and symmetric. The anterior communicating artery is seen. No stenos es, occlusions, or aneurysms. Posterior circulation: Dominant left vertebral artery. The right vertebral artery beyond PICA is hyp oplastic. The basilar artery is predominately supplied by the left vertebral artery. There orig ins of both the left and right posterior cerebral arteries. The flow within the posterior cerebral ar teries is normal and symmetric. No stenoses, occlusions, or aneurysms. NECK MR ANGIOGRAM: Carotids: Great vessels demonstrate a conventional anatomy as they arise from the aortic arch. The origins of the common carotid arteries appear patent. The calibers and courses of both common caroti d arteries are normal. The bifurcation regions appear normal bilaterally. The internal carotid yfn ron demonstrate normal course and caliber. Posterior circulation: The origins of the vertebral arteries appear patent. More superior portions of both vertebral arteries demonstrate normal course and caliber, and join to form a normal appearing basilar artery. Miscellaneous: Subclavian arteries appear patent. Pre-contrast images through the neck show no soft tissue abnormalities. There are surgical changes in cervical spine. IMPRESSION: BRAIN MRI: 1. A 2.9 x 2.8 cm area of restricted diffusion in the left cerebellar hemisphere consistent with acut e or subacute infarct. 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 There are small foci of hemosiderin deposition within the infarcted area. 2. A tiny focus of hyperintensity on diffusion weighted images without definitive correlate on ADC ma p, such as secondary to chronic white matter small vessel ischemia. A differential diagnosis is axona l injury. 3. Postsurgical changes in cervical spine. BRAIN MR ANGIOGRAM: 1. Normal anterior and posterior circulations. 2. 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 NECK MR ANGIOGRAM: Normal carotid arteries and vertebral arteries laterally. The estimate of stenosis included in the report of the imaging study was calculated using the NASCET method Dictated by: Tiffanie Scott M.D. on 09/29/2016 at 12:41 Approved by: Tiffanie Scott M.D. on 09/29/2016 at 13:30
--- NOTE | 2016-09-29 14:06 | NUR ---
transferred to [facility] per BLS Pt is being transferred due to increased delerium. Jaschavo Mechelle, protested the transfer, because they had had a bad experience while he was there the first time, but his brother, next of kin, wants him to transfer there per Dr Alexander's wishes. She understood that the families wishes override her wishes and she resigned herself to the transfer. Pt is quite confused, he thought he was in [place], wondering some in hallway and into other pts room. VSS, Speech is clear, gait is fairly steady, he did have some difficulty swallowing, coughed and gagged after eating solid foods. Report called to [facility] [place] [place] [facility]. Scans of this mornings MRI are being sent electronically to [facility] [place]
== END 2016-09-29 13:20 | disposition short-term general hospital (02) ==
LOC: SED 23:47 → OSC 09-29 02:56
PROVIDERS: ADMIT Hospitalist; ATTEND Hospitalist
DX: R41.0 Disorientation, unspecified (principal); G93.89 Other specified disorders of brain; J45.909 Unspecified asthma, uncomplicated; F17.210 Nicotine dependence, cigarettes, uncomplicated; F15.90 Other stimulant use, unspecified, uncomplicated; W11.XXXD Fall on and from ladder, subsequent encounter; Y92.9 Unspecified place or not applicable; S12.200D Unspecified displaced fracture of third cervical vertebra, subsequent encounter for fracture with routine healing; S12.300D Unspecified displaced fracture of fourth cervical vertebra, subsequent encounter for fracture with routine healing; S12.400D Unspecified displaced fracture of fifth cervical vertebra, subsequent encounter for fracture with routine healing; S22.42XD Multiple fractures of ribs, left side, subsequent encounter for fracture with routine healing; S42.102D Fracture of unspecified part of scapula, left shoulder, subsequent encounter for fracture with routine healing; S42.002D Fracture of unspecified part of left clavicle, subsequent encounter for fracture with routine healing; S62.391D Other fracture of second metacarpal bone, left hand, subsequent encounter for fracture with routine healing; S62.325D Displaced fracture of shaft of fourth metacarpal bone, left hand, subsequent encounter for fracture with routine healing
CPT/HCPCS: 36415; 70450; 70549; 70553; 71010; 73130; 80053; 81000; 81002; 83605; 85025; 87040; 96374; 96375; 99285; A9585; G0378; G0480; J1630; J2060